=== PATIENT | male | born 1960 | race Caucasian/White ===

== ENCOUNTER 2016-12-06 13:19 | Observation (INO) | payer BC ==
[~2016-12-06] VITALS: Ht 175.3 cm; Wt 82.1 kg
[2016-12-06] VITALS (7 sets, daily range): BP systolic 105–146; BP diastolic 64–79; PULSE 102–115; RESP 16–20; TEMP 99.4–99.6; O2SAT 93–96
[~2016-12-06 13:19] MED LIST: ASCO500C PO; FERR310S PO; GLIM1 PO; LANSO30 PO; LIVA4TAB PO; LOSA50TA PO; MAGN250T9 PO; METF500 PO; MULTTAB; TRAD5TAB PO; VENTAER INH; VITA5000 PO; ZITH1POW PO
[2016-12-06] MEDS ORDERED: GLIM1TAB PO (14:30)
[2016-12-06] MEDS ORDERED: LIVA2TAB PO (14:30)
[2016-12-06] MEDS ORDERED: VITD400 PO (14:30)
[2016-12-06] MEDS ORDERED: METF500T PO (14:30)
[2016-12-06] MEDS ORDERED: LOSA50TA PO (14:30)
[2016-12-06] MEDS ORDERED: OMEP20TA PO (14:30)
[2016-12-06] MEDS ORDERED: PIOG30TA4 PO (14:30)
[2016-12-06] MEDS ORDERED: ALBI1INJ SQ (14:30)
[2016-12-06] MEDS ORDERED: SODIUM CHLOR 0.9% 1000 ML INJ 1,000 ML IV SCH (14:53)
[2016-12-06] MEDS ORDERED: ONDANSETRON HCL 4 MG/2 ML VIAL IVP ONE (15:00)
[2016-12-06] MEDS ORDERED: methylPREDNISolone SOD SUCC 125 MG/2 ML VIAL IVP ONE (15:00)
--- NOTE | 2016-12-06 15:02 | PD ---
HPI Chief Complaint: Cold / Flu Symptoms Time Seen by Provider: 14:56 Travel History International Travel<30 days: No Contact w/Intl Traveler<30days: No Traveled to known affect area: No History of Present Illness HPI Patient is a 56-year-old male with a history of NIDDM and childhood asthma presenting with cough and fever for 3 days. It is progressively worsening. Endorses sputum production that is clear and white. Endorses wheezing and tightness in the chest but denies chest pain. States he feels like he has difficulty taking a full breath. Does have some upper back pain bilaterally. No pleuritic pain. Reports dyspnea, nasal congestion and left ear pain. Some myalgias. He did not receive influenza vaccine. MAXIMUM TEMPERATURE 103.0 Fahrenheit, it has responded to antipyretics which she took approximately 3 hours prior to arrival. He states he's had some nausea as well and reduced oral intake. No vomiting or diarrhea. He's had some lower abdominal pain with coughing that does not radiate. He denies any urinary symptoms. He denies constipation. He states his sugars have not been well-controlled with his fasting in the low 200s. PFSH Past Medical History Anemia: Yes Cancer: No High Cholesterol: Yes Diabetes: Yes (TYPE 2) Patient Takes Glucophage: Yes Endocrine: Yes Hypertension: Yes Inguinal Hernia: Yes Psychiatric: No Respiratory: Yes (CHILDHOOD ASTHMA) Tetanus Vaccination: < 5 Years Influenza Vaccination: No Past Surgical History Neurologic Surgery: Yes (LAMINECTOMY) Tonsillectomy: Yes Other Surgery: Yes Social History Alcohol Use: No Tobacco Use: No Substance Use: No Allergies-Medications (Allergen,Severity, Reaction): Coded Allergies: No Known Allergies (Unverified , 12/06/16) Reported Meds & Prescriptions Reported Meds & Active Scripts Active Reported Pioglitazone (Pioglitazone HCl) 30 Mg Tab 30 Mg PO DAILY Omeprazole 20 Mg Tab 20 Mg PO DAILY Vitamin D3 (Cholecalciferol) 400 Unit Tab 400 Units PO DAILY Metformin (Metformin HCl) 500 Mg Tab 500 Mg PO BIDPC With meals Livalo (Pitavastatin) 2 Mg Tab 2 Mg PO DAILY Tanzeum 4-Pack Inj (Albiglutide) 30 Mg Pfpen 30 Mg SQ Q7D Losartan (Losartan Potassium) 50 Mg Tab 50 Mg PO DAILY Glimepiride 1 Mg Tab 1 Mg PO BID Take with breakfast or first main meal Review of Systems Except as stated in HPI: all other systems reviewed are Neg Physical Exam Narrative GENERAL: Well-developed and well-nourished adult male in no acute distress. Mildly diaphoretic in the face. SKIN: Warm and dry. Decreased turgor without tenting. HEAD: Normocephalic and atraumatic. EYES: PERRL bilaterally, 5mm. EOMI bilaterally. No injection or icterus present. No proptosis. Lids without edema or erythema. ENT: Bilateral ear canals are non-edematous/non-erythematous without otorrhea. Bilateral TMs have intact landmarks and without distortion, perforation, air- fluid level or erythema. Nasal mucosa erythematous and edematous with scant yellow discharge, septum intact and midline. Buccal mucosa pink and slightly dry. Oropharynx free of erythema, tonsillar hypertrophy, masses, swelling, asymmetry and exudates. Uvula midline and airway patent. NECK: Supple, no meningeal signs. Trachea midline, no JVD. No cervical or facial lymphadenopathy. CARDIOVASCULAR: Mild tachycardic (102) with regular rhythm without murmurs, rubs , clicks or gallops. Radial and posterior tibial pulses 2+ bilaterally. No pedal edema. Negative bilateral Homans sign. RESPIRATORY: Reduced breath sounds in the upper lung starr bilaterally without wheezing auscultated. Possible crackles in the left upper to mid lung starr posteriorly. No rhonchi. No distress or use of accessory muscles. Speaks in full sentences. No stridor, tripoding or drooling. GASTROINTESTINAL: Mild tenderness to palpation in the right periumbilical region without right upper quadrant or right lower quadrant tenderness. No rebound or guarding. No discoloration or distention. Normal bowel sounds all 4 quadrants. No masses or organomegaly present. MUSCULOSKELETAL: No gait disturbances. Patient freely moving all four extremities spontaneously. Extremities without clubbing, cyanosis, or edema. No obvious deformities. NEUROLOGIC: CN II-XII grossly intact. Awake and alert. Motor grossly within normal limits. Normal speech. PSYCHIATRIC: Appropriate mood and affect; insight and judgment normal. Data Data Last Documented VS Orders Electrocardiogram (12/06/16 14:53) Complete Blood Count With Diff (12/06/16 14:53) Comprehensive Metabolic Panel (12/06/16 14:53) Influenzae A/B Antigen (12/06/16 14:53) Chest, Pa & Lat (12/06/16 14:53) Ecg Monitoring (12/06/16 14:53) Iv Access Insert/Monitor (12/06/16 14:53) Oximetry (12/06/16 14:53) Ckmb (Isoenzyme) Profile (12/06/16 14:53) Prothrombin Time / Inr (Pt) (12/06/16 14:53) Act Partial Throm Time (Ptt) (12/06/16 14:53) Troponin I (12/06/16 14:53) Lipase (12/06/16 14:53) Lactic Acid (12/06/16 14:53) Urinalysis - C+S If Indicated (12/06/16 14:53) Ondansetron Inj (Zofran Inj) (12/06/16 15:00) Sodium Chlor 0.9% 1000 Ml Inj (Ns 1000 M (12/06/16 14:53) Blood Culture (12/06/16 14:53) Methylprednisolone So Succ Inj (Solumedr (12/06/16 15:00) Albuterol-Ipratropium Neb (Duoneb Neb) (12/06/16 15:00) Albuterol-Ipratropium Neb (Duoneb Neb) (12/06/16 16:15) Ct Pulmonary Angiogram (12/06/16 16:47) Admit Order (Ed Use Only) (12/06/16 17:17) Labs MDM Medical Decision Making Medical Screen Exam Complete: Yes Emergency Medical Condition: Yes Interpretation(s) EKG: Sinus tachycardia present, rate of 114. Normal axis and normal intervals. No ST T changes. Differential Diagnosis Pneumonia versus influenza versus viral syndrome versus sepsis versus dehydration versus electrolyte disturbance versus pancreatitis versus ACS less likely versus PE Narrative Course Patient is a 56-year-old NIDDM and childhood asthma presenting with upper respiratory/anti-Aguirre for 3 days with fever. He is currently afebrile however temperature is 99.6 and he reports MAXIMUM TEMPERATURE 103F, took antipyretics prior to arrival. He has decreased skin turgor and dry mucous membranes is mildly tachycardic. He has slightly decreased breath sounds suggesting bronchospasm and some possible crackles. He reports chest tightness and difficulty taking a deep breath but no baron chest pain. Reports some nausea and reduced oral intake with some very mild abdominal discomfort which he relates to coughing and straining the muscles. Mild tenderness in the right periumbilical region without rebounding or guarding. Patient was given 1 L normal saline bolus and ordered Zofran and ordered chest x-ray and rapid flu test as well as EKG and labs including lactic acid and blood cultures. Patient was also given SoluMedrol and DuoNeb. Patient does not feel any improvement after initial nebulizer treatment. He continued not have any wheezing on exam however. Oxygen level did decrease to 93% on room air. Patient was given additional neb was a treatment and did have some minor improvement in saturations did improve to 95%. EKG shows sinus tachycardia and some inferior lead Q waves which are not present on 2 doesn't 15 EKG. Chest x-ray shows no acute cardio pulmonary process. CBC shows no leukocytosis. Lactate 1.8. Flu A positive. Metabolic panel shows sodium 135, BUN 19, parent and 1.5, up from baseline of 1.00. Glucose 222. Calcium 8.2. CK 69, troponin less than 0.02. albumin 3.2, lipase 520. I spoke with Dr. Orellana who also evaluated this patient and agrees that influenza is likely the cause of his respiratory symptoms however as he has no wheezing cannot definitely rule out ACS or PE. Recommend CTA pulmonary angiogram which was ordered. This patient has mild dehydration and his other symptoms recommended observation. Gave report to Eliazar JARRETT who accepted the admission. Diagnosis Primary Impression: Chest tightness Additional Impressions: Dyspnea Qualified Code: R06.00 - Dyspnea, unspecified type Influenza A Dehydration Admitting Information Admitting Physician Requests: Observation Scripts Oseltamivir (Tamiflu)75 Mg Cap75 Mg PO BID #6 CAP Ref 0 Prov:Renetta Johnson MD 12/08/16 Condition: Stable Eliazar Kilpatrick III Dec 06, 2016 15:02 CBC Comment DIFF FINAL Differential Comment Prothrombin Time 11.4 SEC Prothromb Time International 1.0 RATIO Ratio Activated Partial 29.3 SEC Thromboplast Time Sodium Level 135 MEQ/L Potassium Level 4.3 MEQ/L Chloride Level 102 MEQ/L Carbon Dioxide Level 22.8 MEQ/L Anion Gap 10 MEQ/L Blood Urea Nitrogen 19 MG/DL Creatinine 1.50 MG/DL Estimat Glomerular Filtration 48 ML/MIN Rate Random Glucose 222 MG/DL Lactic Acid Level 1.8 mmol/L Calcium Level 8.2 MG/DL Total Bilirubin 0.3 MG/DL Aspartate Amino Transf 33 U/L (AST/SGOT) Alanine Aminotransferase 55 U/L (ALT/SGPT) Alkaline Phosphatase 62 U/L Total Creatine Kinase 69 U/L Troponin I LESS THAN 0.02 NG/ML Total Protein 7.2 GM/DL Albumin 3.2 GM/DL Lipase 520 U/L [facility] Medical Decision Making Medical Screen Exam Complete: Yes Emergency Medical Condition: Yes Interpretation(s) EKG: Sinus tachycardia present, rate of 114. Normal axis and normal intervals. No ST T changes. Differential Diagnosis Pneumonia versus influenza versus viral syndrome versus sepsis versus dehydration versus electrolyte disturbance versus pancreatitis versus ACS less likely versus PE Narrative Course Patient is a 56-year-old NIDDM and childhood asthma presenting with upper respiratory/anti-Aguirre for 3 days with fever. He is currently afebrile however temperature is 99.6 and he reports MAXIMUM TEMPERATURE 103F, took antipyretics prior to arrival. He has decreased skin turgor and dry mucous membranes is mildly tachycardic. He has slightly decreased breath sounds suggesting bronchospasm and some possible crackles. He reports chest tightness and difficulty taking a deep breath but no baron chest pain. Reports some nausea and reduced oral intake with some very mild abdominal discomfort which he relates to coughing and straining the muscles. Mild tenderness in the right periumbilical region without rebounding or guarding. Patient was given 1 L normal saline bolus and ordered Zofran and ordered chest x-ray and rapid flu test as well as EKG and labs including lactic acid and blood cultures. Patient was also given SoluMedrol and DuoNeb. Patient does not feel any improvement after initial nebulizer treatment. He continued not have any wheezing on exam however. Oxygen level did decrease to 93% on room air. Patient was given additional neb was a treatment and did have some minor improvement in saturations did improve to 95%. EKG shows sinus tachycardia and some inferior lead Q waves which are not present on 2 doesn't 15 EKG. Chest x-ray shows no acute cardio pulmonary process. CBC shows no leukocytosis. Lactate 1.8. Flu A positive. Metabolic panel shows sodium 135, BUN 19, parent and 1.5, up from baseline of 1.00. Glucose 222. Calcium 8.2. CK 69, troponin less than 0.02. albumin 3.2, lipase 520. I spoke with Dr. Orellana who also evaluated this patient and agrees that influenza is likely the cause of his respiratory symptoms however as he has no wheezing cannot definitely rule out ACS or PE. Recommend CTA pulmonary angiogram which was ordered. This patient has mild dehydration and his other symptoms recommended observation. Gave report to Eliazar JARRETT who accepted the admission. Diagnosis Primary Impression: Chest tightness Additional Impressions: Dyspnea Qualified Code: R06.00 - Dyspnea, unspecified type Influenza A Dehydration Admitting Information Admitting Physician Requests: Observation Condition: Stable Eliazar Kilpatrick III Dec 06, 2016 15:02
[2016-12-06] MEDS: RESP: ALBUTEROL 2.5 MG/IPRATROPIUM 0.5 MG NEB (SCH) INH ×4 (15:03→16:19)
[2016-12-06 15:26] LABS: BASOPHIL # 0.1 TH/MM3 (0-0.2); EOSINOPHIL # 0.1 TH/MM3 (0-0.4); EOSINOPHIL % 1.7 % (0.0-4.0); HEMATOCRIT 40.1 % (39.0-51.0); LYMPH % 15.2 % (9.0-44.0); LYMPHOCYTE # 1.3 TH/MM3 (1.0-4.8); MEAN CELL VOLUME 82.9 FL (80.0-100.0); MEAN CORPUSCULAR HEMOGLOBIN 27.5 PG (27.0-34.0); MEAN CORPUSCULAR HGB CONC 33.2 % (32.0-36.0); MONO % 14.8 % (0.0-8.0); NEUT % 67.3 % (16.0-70.0); PLATELET COUNT 143 TH/MM3 (150-450); RED BLOOD COUNT 4.84 MIL/MM3 (4.50-5.90); RED CELL DISTRIBUTION WIDTH 12.4 % (11.6-17.2); WHITE BLOOD COUNT 8.8 TH/MM3 (4.0-11.0)
[2016-12-06 15:33] LABS: CHLORIDE 102 MEQ/L (98-107); POTASSIUM 4.3 MEQ/L (3.5-5.1); SODIUM (NA) 135 MEQ/L (136-145)
[2016-12-06 15:34] LABS: HEMO FLAGS DIFF FINAL
[2016-12-06 15:37] LABS: ANION GAP 10 MEQ/L (5-15); BICARBONATE 22.8 MEQ/L (21.0-32.0); BLOOD UREA NITROGEN 19 MG/DL (7-18)
[2016-12-06 15:38] LABS: APTT (PATIENT) 29.3 SEC (24.3-30.1); PROTHROMBIN TIME - PATIENT 11.4 SEC (9.8-11.6)
[2016-12-06 15:40] LABS: ALT (GPT) 55 U/L (12-78); AST (GOT) 33 U/L (15-37); GLOMERULAR FILTRATION RATE 48 ML/MIN (>89)
[2016-12-06 15:41] LABS: TOTAL BILIRUBIN ADULT 0.3 MG/DL (0.2-1.0)
[2016-12-06 15:43] LABS: ALKALINE PHOSPHATASE 62 U/L (45-117)
[2016-12-06 15:47] LABS: CREATINE KINASE 69 U/L (39-308)
--- NOTE | 2016-12-06 16:12 | RADHPO ---
EXAM DATE/TIME: 12/06/2016 15:01 [facility] COMPARISON: CHEST PA & LAT, January 04, 2015, 18:25. INDICATIONS : Patient states cough and fever. MEDICAL HISTORY : Diabetes mellitus type II. SURGICAL HISTORY : None. ENCOUNTER: Initial ACUITY: 2 days PAIN SCORE: 3/10 LOCATION: Left chest FINDINGS: The lungs are clear. Cardiomediastinal silhouette within normal limits. No evidence of pleural effusi on or pneumothorax. CONCLUSION: No acute cardiopulmonary disease identified. Washington Weiner MD on December 06, 2016 at 16:09 Board Certified Radiologist. This report was verified electronically.
[2016-12-06] MEDS ORDERED: MAGNESIUM HYDROXIDE SUSP 30 ML CUP PO PRN (17:30)
[2016-12-06] MEDS ORDERED: TEMAZEPAM 15 MG CAP PO PRN (17:30)
[2016-12-06] MEDS ORDERED: BISACODYL 10 MG SUPP PR PRN (17:30)
[2016-12-06] MEDS ORDERED: ACETAMINOPHEN 325 MG TAB PO PRN (17:30)
[2016-12-06] MEDS ORDERED: NALOXONE HCL 0.4 MG/ML AMP IV PRN (17:30)
[2016-12-06] MEDS ORDERED: SODIUM CHLORIDE 0.9% FLUSH 5 ML FLUSH FLUSH PRN (17:30)
[2016-12-06] MEDS ORDERED: GLUCAGON 1 MG/ML VIAL OTHER PRN (17:30)
[2016-12-06] MEDS ORDERED: DEXTROSE 50% IN WATER 50 ML VIAL(D50) IV PUSH PRN (17:30)
[2016-12-06] MEDS ORDERED: ONDANSETRON HCL 4 MG/2 ML VIAL IVP PRN (17:30)
[2016-12-06] MEDS ORDERED: IOHEXOL 350 MG/ML 10 ML VIAL (for RAD DIAG) IV ONE (17:58)
--- NOTE | 2016-12-06 18:03 | RADHPO ---
EXAM DATE/TIME: 12/06/2016 17:38 [facility] COMPARISON: No previous studies available for comparison. INDICATIONS : Evaluate for pulmonary embolism. IV CONTRAST: 75 cc Omnipaque 350 (iohexol) IV RADIATION DOSE: 16.70 CTDIvol (mGy) MEDICAL HISTORY : Hypertension. Diabetes mellitus type 2. SURGICAL HISTORY : Tonsillectomy. ENCOUNTER: Initial ACUITY: 3 days PAIN SCALE: 4/10 LOCATION: chest TECHNIQUE: Volumetric scanning of the chest was performed using a pulmonary embolism protocol MIP images were re constructed. Using automated exposure control and adjustment of the mA and/or kV according to patien t size, radiation dose was kept as low as reasonably achievable to obtain optimal diagnostic quality images. FINDINGS: PULMONARY ARTERIES: No filling defects are seen in the pulmonary arteries through the segmental level. LUNGS: Trace bibasilar atelectasis. PLEURAE: There is no pleural thickening or pleural effusion. MEDIASTINUM: There is good visualization of the great vessels of the middle mediastinum. No evidence of mediastin al or hilar adenopathy/mass. Heart size normal. Patchy coronary artery calcification noted, most cons picuous of the left anterior descending. MUSCULOSKELETAL: Within normal limits for patient age. MISCELLANEOUS: The visualized upper abdominal organs demonstrate no acute abnormality. CONCLUSION: 1. No pulmonary embolus. 2. Trace atelectasis of both lung bases. 3. Patchy coronary artery calcification. Eliazar Sharma MD on December 06, 2016 at 18:01 Board Certified Radiologist. This report was verified electronically.
[2016-12-06 18:20] LABS: BLOOD, URINE NEG (NEG); GLUCOSE,URINE 500 mg/dL (NEG); KETONE, URINE TRACE mg/dL (NEG); NITRITE,URINE NEG (NEG)
[2016-12-06 18:32] LABS: COMMENT (UR) CULT NOT INDICATED; CULTURE IF INDICATED CULT NOT INDICATED; RBC, URINE 0-2 /hpf (0-3); SQUAMOUS EPITHELIAL CELL URINE 0-5 /hpf (0-5); URINE COLOR YELLOW (YELLW/STRAW); WBC, URINE 0-2 /hpf (0-5)
[2016-12-06] MEDS: OSELTAMIVIR PHOSPHATE 75 MG CAP PO SCH (20:07)
[2016-12-06] MEDS: SODIUM CHLOR 0.9% 1000 ML INJ 1,000 ML IV SCH (20:07)
[2016-12-06] MEDS: SODIUM CHLORIDE 0.9% FLUSH 5 ML FLUSH FLUSH SCH (20:08)
[2016-12-06] MEDS: INSULIN ASPART SUPPLEMENTAL SCALE SQ SCH (20:18)
[2016-12-06 22:54] LABS: CREATINE KINASE 67 U/L (39-308)
[2016-12-07] VITALS (8 sets, daily range): BP systolic 116–157; BP diastolic 73–90; PULSE 65–95; RESP 18–20; TEMP 96.5–98; O2SAT 94–98
[2016-12-07] MEDS: SODIUM CHLOR 0.9% 1000 ML INJ 1,000 ML IV SCH ×4 (00:03→17:54)
[2016-12-07] MEDS ORDERED: PHENOL 1.4% SOLN 180 ML BTL OROPHARYNG PRN (01:45)
[2016-12-07 04:40] LABS: AUTOMATED NEUTROPHIL # 7.6 TH/MM3 (1.8-7.7); BASOPHIL % 0.3 % (0.0-2.0); EOSINOPHIL % 0.1 % (0.0-4.0); HEMATOCRIT 39.8 % (39.0-51.0); HEMO FLAGS DIFF FINAL; LYMPH % 8.3 % (9.0-44.0); LYMPHOCYTE # 0.7 TH/MM3 (1.0-4.8); MEAN CELL VOLUME 83.4 FL (80.0-100.0); MEAN CORPUSCULAR HEMOGLOBIN 27.7 PG (27.0-34.0); MEAN CORPUSCULAR HGB CONC 33.3 % (32.0-36.0); MONO % 5.3 % (0.0-8.0); PLATELET COUNT 160 TH/MM3 (150-450); RED BLOOD COUNT 4.78 MIL/MM3 (4.50-5.90); RED CELL DISTRIBUTION WIDTH 12.3 % (11.6-17.2); WHITE BLOOD COUNT 8.8 TH/MM3 (4.0-11.0)
[2016-12-07 04:48] LABS: POTASSIUM 4.3 MEQ/L (3.5-5.1)
[2016-12-07 04:51] LABS: BICARBONATE 22.7 MEQ/L (21.0-32.0)
[2016-12-07] MEDS: NITROGLYCERIN 0.3 MG SL 100 TABS/BTL SL PRN ×3 (05:01→05:25)
[2016-12-07 05:02] LABS: CREATINE KINASE 91 U/L (39-308)
[2016-12-07] MEDS: INSULIN ASPART SUPPLEMENTAL SCALE SQ SCH ×4 (07:00→21:00)
[2016-12-07] MEDS: SODIUM CHLORIDE 0.9% FLUSH 5 ML FLUSH FLUSH SCH ×2 (08:37→21:00)
[2016-12-07] MEDS: OSELTAMIVIR PHOSPHATE 75 MG CAP PO SCH ×2 (08:38→21:00)
[2016-12-07] MEDS ORDERED: metFORMIN HCL 500 MG TAB PO SCH (09:00)
[2016-12-07] MEDS: PANTOPRAZOLE SOD 20 MG DELAYED RELEASE TAB PO SCH (10:38)
[2016-12-07] MEDS: PIOGLITAZONE HCL 30 MG TAB PO SCH (10:38)
[2016-12-07] MEDS: GLIMEPIRIDE 1 MG TAB PO SCH ×2 (10:38→17:54)
[2016-12-07] MEDS: CHOLECALCIFEROL (VIT D3) 400 UNIT TAB PO SCH (10:39)
[2016-12-07] MEDS: PRAVASTATIN SOD 40 MG TAB PO SCH (10:39)
[2016-12-07] MEDS: LOSARTAN 50 MG TAB PO SCH (10:39)
--- NOTE | 2016-12-07 10:56 | HHI.HP ---
[facility] Service [facility] ([place], [place])ists Primary Care Physician Dipak Pond MD Admission Diagnosis DYSPNEA, CHEST TIGHTNESS, FLU, DEHYDRATION Diagnoses: Travel History International Travel<30 Days: No Contact w/Intl Traveler <30 Da: No Traveled to Known Affected Are: No History of Present Illness This is a 56 year-old female with past medical history of type 2 diabetes who presented to the ER last night complaining of a three-day history of cough productive of clear sputum, fevers, chills, myalgias and fatigue. The patient felt like the symptoms were worsening. Over the past several days he also had nausea but no vomiting. Because of the nausea he had not taken any of his medications for diabetes. He was starting to feel dehydrated and short of breath and thus he presented to the ER. In the ER influenza testing was positive. The patient received duo nebs and was started on Tamiflu and was placed in the hospital for observation. Today the patient states that he feels "100% better." He states that the duo nebs really helped with the shortness of breath. 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 He states that nitroglycerin did relieve the chest pain. The patient denies that he has had any other episodes of chest pain prior to being sick with influenza. He does not get short of breath or have chest pressure when he climbs up a flight of stairs. The patient states that he had a stress test 10-15 years ago but has not had one recently. The patient is also followed by an horticulture worker Dr. Asher and he is on Tanzeum subcutaneous injection weekly, glimepiride as well as metformin and by mouth glitazone. The patient states that he was tried on insulin in the past but it failed to control his diabetes. For this he believes he is insulin resistant. The patient's Accu-Cheks are running in the 300s this morning but he is refusing to take the short acting insulin at this time because he does not feel it will be effective. He denies ever having any bad reaction or side effect to the insulin. Review of Systems Constitutional: COMPLAINS OF: Fever, Chills Ears, nose, mouth, throat: COMPLAINS OF: Nasal discharge, Throat pain, Running Nose Respiratory: COMPLAINS OF: Cough, Sputum production, Shortness of breath Cardiovascular: COMPLAINS OF: Chest pain, Dyspnea on Exertion, DENIES: Palpitations, Syncope Gastrointestinal: COMPLAINS OF: Nausea, DENIES: Vomiting Genitourinary: DENIES: Urgency, Dysuria Musculoskeletal: DENIES: Back pain, Neck pain Integumentary: DENIES: Rash Hematologic/lymphatic: DENIES: Lymphadenopathy Neurologic: DENIES: Abnormal gait, Headache Psychiatric: DENIES: Anxiety, Confusion Past Family Social History Past Medical History Type 2 diabetes The patient is on losartan and cholesterol medication which he states he takes prophylactically for the diabetes Past Surgical History Right finger traumatic amputations Laminectomy Reported Medications Allergies Coded Allergies Type Severity Reaction Last Updated Verified No Known Allergies 12/06/16 No Active Scripts Medications Dose Route/Sig Days Date Category Dose Instructions Pioglitazone (Pioglitazone HCl) 30 Mg Tab 30 Mg PO DAILY 12/06/16 Reported Omeprazole 20 Mg Tab 20 Mg PO DAILY 12/06/16 Reported Vitamin D3 (Cholecalciferol) 400 Unit Tab 400 Units PO DAILY 12/06/16 Reported Metformin (Metformin HCl) 500 Mg Tab 500 Mg PO BIDPC 12/06/16 Reported With meals Livalo (Pitavastatin) 2 Mg Tab 2 Mg PO DAILY 12/06/16 Reported Tanzeum 4-Pack Inj (Albiglutide) 30 Mg Pfpen 30 Mg SQ Q7D 12/06/16 Reported Losartan (Losartan Potassium) 50 Mg Tab 50 Mg PO DAILY 12/06/16 Reported Glimepiride 1 Mg Tab 1 Mg PO BID 12/06/16 Reported Take with breakfast or first main meal Allergies: Coded Allergies: No Known Allergies (Unverified , 12/06/16) Family History Reviewed and noncontributory Social History No history of tobacco use Physical Exam Vital Signs Vital Signs Date Time Temp Pulse Resp B/P Pulse Ox O2 Delivery O2 Flow Rate FiO2 12/07/16 10:03 96 21 12/07/16 08:00 97.2 66 20 135/83 95 12/07/16 04:00 97.7 74 18 157/90 94 12/07/16 00:00 98.0 95 18 135/88 94 12/06/16 22:31 94 21 12/06/16 20:00 99.4 115 18 141/74 94 12/06/16 18:13 108 20 146/76 93 Room Air 12/06/16 16:21 93 12/06/16 16:20 93 21 12/06/16 16:18 102 20 125/64 93 Room Air 12/06/16 13:31 99.6 108 16 105/79 96 Physical Exam GENERAL: Well-nourished, well-developed pleasant and intelligent male patient in no apparent distress. SKIN: Warm and dry. HEAD: Normocephalic. EYES: No scleral icterus. No injection or drainage. NECK: Supple, trachea midline. No JVD or lymphadenopathy. CARDIOVASCULAR: Regular rate and rhythm without murmurs, gallops, or rubs. RESPIRATORY: Breath sounds equal and clear to auscultation bilaterally. No accessory muscle use on room air. GASTROINTESTINAL: Abdomen soft, non-tender, nondistended. EXTREMITIES: No cyanosis, or edema. NEUROLOGICAL: Awake, alert, and oriented x 3. Non-focal. Laboratory Laboratory Tests Test 12/06/16 12/06/16 12/06/16 12/07/16 15:10 17:50 22:09 04:20 White Blood Count 8.8 8.8 Red Blood Count 4.84 4.78 Hemoglobin 13.3 13.3 Hematocrit 40.1 39.8 Mean Corpuscular Volume 82.9 83.4 Mean Corpuscular Hemoglobin 27.5 27.7 Mean Corpuscular Hemoglobin 33.2 33.3 Concent Red Cell Distribution Width 12.4 12.3 Platelet Count 143 160 Mean Platelet Volume 10.7 10.5 Neutrophils (%) (Auto) 67.3 86.0 Lymphocytes (%) (Auto) 15.2 8.3 Monocytes (%) (Auto) 14.8 5.3 Eosinophils (%) (Auto) 1.7 0.1 Basophils (%) (Auto) 1.0 0.3 Neutrophils # (Auto) 6.0 7.6 Lymphocytes # (Auto) 1.3 0.7 Monocytes # (Auto) 1.3 0.5 Eosinophils # (Auto) 0.1 0.0 Basophils # (Auto) 0.1 0.0 CBC Comment DIFF FINAL DIFF FINAL Differential Comment Prothrombin Time 11.4 Prothromb Time International 1.0 Ratio Activated Partial 29.3 Thromboplast Time Sodium Level 135 136 Potassium Level 4.3 4.3 Chloride Level 102 100 Carbon Dioxide Level 22.8 22.7 Anion Gap 10 13 Blood Urea Nitrogen 19 22 Creatinine 1.50 1.40 Estimat Glomerular Filtration 48 52 Rate Random Glucose 222 339 Lactic Acid Level 1.8 Calcium Level 8.2 8.3 Total Bilirubin 0.3 Aspartate Amino Transf 33 (AST/SGOT) Alanine Aminotransferase 55 (ALT/SGPT) Alkaline Phosphatase 62 Total Creatine Kinase 69 67 91 Troponin I LESS THAN 0.02 LESS THAN 0.02 LESS THAN 0.02 Total Protein 7.2 Albumin 3.2 Lipase 520 209 Urine Color YELLOW Urine Turbidity CLEAR Urine pH 6.0 Urine Specific [place] 1.015 Urine Protein TRACE Urine Glucose (UA) 500 Urine Ketones TRACE Urine Occult Blood NEG Urine Nitrite NEG Urine Bilirubin NEG Urine Leukocyte Esterase NEG Urine RBC 0-2 Urine WBC 0-2 Urine Squamous Epithelial 0-5 Cells Urine Bacteria NONE Microscopic Urinalysis Comment CULT NOT INDICATED Date/Time Procedure Status Source Growth 12/06/16 15:20 Influenza Types A,B Antigen (CHRISTINA) - Final Complete Nasal Washing Positive For Flu A Antigen 12/06/16 15:15 Aerobic Blood Culture Received Blood Peripheral Pending 12/06/16 15:15 Anaerobic Blood Culture Received Blood Peripheral Pending Result Diagram: 12/07/16 0420 12/07/[address] Angiography 12/06/16 1647 Signed Impressions: Service Date/Time: December 17:38 - CONCLUSION: 1. No pulmonary embolus. 2. Trace atelectasis of both lung bases. 3. Patchy coronary artery calcification. Eliazar Sharma MD Chest X-Ray 12/06/16 1453 Signed Impressions: Service Date/Time: December 15:01 - CONCLUSION: No acute cardiopulmonary disease identified. Washington Weiner MD Assessment and Plan Assessment and Plan -Influenza. Symptoms improved. Continue Tamiflu and supportive care. Duo nebs. -Dehydration with mild and probable acute kidney injury. Creatinine 1.5 which is increased from his baseline from 2 years ago however BUN is not significantly elevated. We'll continue with IV fluid hydration but decrease rate as his by mouth intake is now improved. Will repeat BMP in the morning. I will request his recent labs from his horticulture worker office. -Transient chest pain last night in the setting of influenza. Serial EKGs and troponins are negative. Given his type 2 diabetes, age we will proceed with stress test. Unfortunately he had tea this morning so this will be need to be scheduled for tomorrow morning. Continue aspirin, nitroglycerin when necessary. -Type 2 diabetes. Uncontrolled currently as the patient had not taken his medications for 2 days as an outpatient. He is apprehensive about using sliding scale insulin as he states the insulin does not work for him. We will resume his home medications with the exception of metformin which needs to be held for 48 hours status post CTA. Continue ADA diet. -DVT prophylaxis with SCDs. Renetta Johnson MD Dec 07, 2016 10:56
[2016-12-07] MEDS ORDERED: ALBUTEROL SULFATE 90 MCG/ACT HFA 8 GM INHALER INH PRN (11:00)
[2016-12-07] MEDS ORDERED: ALBIGLUTIDE SQ SCH ×2 (12:00→15:00)
--- NOTE | 2016-12-07 13:35 | EKG ---
Date Performed: 12/06/2016 Time Performed: 15:16:52 PTAGE: 56 years EKG: Sinus tachycardia Inferior T wave changes are nonspecific Low QRS voltages in precordial le ads Borderline ECG NO PREVIOUS TRACING DOCTOR: Stephanie Del Rio Interpretating Date/Time 12/07/2016 13:33:28
--- NOTE | 2016-12-07 13:46 | EKG ---
Date Performed: 12/07/2016 Time Performed: 03:02:04 PTAGE: 56 years EKG: Sinus rhythm Low QRS voltages in precordial leads Borderline ECG PREVIOUS TRACING : 12/06/2016 21.08 Since previous tracing, no significant change noted DOCTOR: Stephanie Del Rio Interpretating Date/Time 12/07/2016 13:38:09
--- NOTE | 2016-12-07 13:46 | EKG ---
Date Performed: 12/06/2016 Time Performed: 21:08:20 PTAGE: 56 years EKG: Sinus rhythm Low QRS voltages in precordial leads Borderline ECG PREVIOUS TRACING : 12/06/2016 15.16 Since previous tracing, no significant change noted DOCTOR: Stephanie Del Rio Interpretating Date/Time 12/07/2016 13:38:01
[2016-12-07] MEDS ORDERED: RESP: ALBUTEROL 2.5 MG/IPRATROPIUM 0.5 MG NEB (SCH) NEB (14:00)
[2016-12-07] MEDS ORDERED: RESP: ALBUTEROL 2.5 MG/IPRATROPIUM 0.5 MG NEB (PRN) NEB (16:00)
[2016-12-08] VITALS: BP 116/82; PULSE 72; RESP 18; TEMP 96.7; O2SAT 95
[2016-12-08 04:07] VITALS: BP 116/86; PULSE 66; RESP 20; TEMP 97.7; O2SAT 97
[2016-12-08] MEDS: INSULIN ASPART SUPPLEMENTAL SCALE SQ SCH ×2 (06:08→11:00)
[2016-12-08] MEDS: SODIUM CHLOR 0.9% 1000 ML INJ 1,000 ML IV SCH (06:09)
[2016-12-08 07:20] VITALS: O2SAT 93
[2016-12-08 08:00] VITALS: BP 126/80; PULSE 65; PULSE 78; RESP 18; TEMP 97; O2SAT 97
[2016-12-08] MEDS: SODIUM CHLORIDE 0.9% FLUSH 5 ML FLUSH FLUSH SCH (09:00)
[2016-12-08] MEDS ORDERED: REGADENOSON INJ 0.4 MG/5 ML SYR IV ONE (09:32)
--- NOTE | 2016-12-08 10:45 | RADHPO ---
EXAM DATE/TIME: 12/08/2016 09:39 [place] COMPARISON: No previous studies available for comparison. INDICATIONS : Substernal chest pain with dyspnea. Angina. DOSE: 25.4 mCi Tc99m Myoview at stress. 8.5 mCi Tc99m Myoview at rest. 0.4 mg Lexiscan STRESS SYMPTOMS: Dyspnea. EJECTION FRACTION: 69% MEDICAL HISTORY : Diabetes mellitus type 2. SURGICAL HISTORY : Laminectomy and finger amputation. ENCOUNTER: Initial ACUITY: 1 day PAIN SCALE: 5/10 LOCATION: Substernal chest TECHNIQUE: The patient underwent pharmacologic stress with infusion of prescribed dose. Continuous ECG tracing was monitored during stress. Gated SPECT imaging was performed after stress and conventional SPECT i maging was performed at rest. The examination was performed on a SPECT/CT scanner, both attenuation and non-corrected datasets were reviewed. FINDINGS: DISTRIBUTION: The maximum perfused segment at stress is in the inferoseptal wall. PERFUSION STUDY: The pattern of perfusion at stress is within normal limits. GATED STUDY: There is intact wall motion and thickening without hypokinetic or dyskinetic segments. CONCLUSION: No reversible perfusion defects to suggest ischemia. Normal ejection fraction. RISK CATEGORY: Low (<1% Annual Mortality Rate) Josiah Preston MD on December 08, 2016 at 10:42 Board Certified Radiologist. This report was verified electronically.
[2016-12-08 10:48] LABS: POTASSIUM 3.9 MEQ/L (3.5-5.1)
[2016-12-08 10:51] LABS: BICARBONATE 27.9 MEQ/L (21.0-32.0)
[2016-12-08] MEDS: CHOLECALCIFEROL (VIT D3) 400 UNIT TAB PO SCH (11:43)
[2016-12-08] MEDS: PANTOPRAZOLE SOD 20 MG DELAYED RELEASE TAB PO SCH (11:43)
[2016-12-08] MEDS: LOSARTAN 50 MG TAB PO SCH (11:43)
[2016-12-08] MEDS: PRAVASTATIN SOD 40 MG TAB PO SCH (11:43)
[2016-12-08] MEDS: OSELTAMIVIR PHOSPHATE 75 MG CAP PO SCH (11:43)
[2016-12-08] MEDS: PIOGLITAZONE HCL 30 MG TAB PO SCH (11:43)
[2016-12-08] MEDS: GLIMEPIRIDE 1 MG TAB PO SCH (11:43)
--- NOTE | 2016-12-08 11:57 | HHI.PR ---
Subjective Remarks Still has cough. Feels better, no dyspnea. Stress test negative. Accuchek improved this morning. Objective Vitals Vital Signs Date Time Temp Pulse Resp B/P Pulse Ox O2 Delivery O2 Flow Rate FiO2 12/08/16 08:00 97.0 65 18 126/80 97 12/08/16 08:00 78 12/08/16 07:20 93 21 12/08/16 04:07 97.7 66 20 116/86 97 12/08/16 00:00 96.7 72 18 116/82 95 12/07/16 21:15 96 21 12/07/16 20:07 97.2 76 20 123/80 98 12/07/16 16:00 96.9 80 20 116/73 95 12/07/16 12:00 96.5 65 20 135/86 94 I/O 12/07/16 12/07/16 12/07/16 12/08/16 12/08/16 12/08/16 07:00 15:00 23:00 07:00 15:00 23:00 Intake Total 820 ml 1000 ml Balance 820 ml 1000 ml Intake Oral 820 ml 1000 ml # Voids 3 5 1 1 # Bowel Movements 0 0 Result Diagram: 12/07/16 0420 12/08/16 1034 Objective Remarks GENERAL: Well-nourished, well-developed very pleasant CM patient. SKIN: Warm and dry. HEAD: Normocephalic. EYES: No scleral icterus. No injection or drainage. NECK: Supple, trachea midline. No JVD or lymphadenopathy. CARDIOVASCULAR: Regular rate and rhythm without murmurs, gallops, or rubs. RESPIRATORY: Breath sounds equal bilaterally. No accessory muscle use. GASTROINTESTINAL: Abdomen soft, non-tender, nondistended. EXTREMITIES: No cyanosis, or edema. NEUROLOGICAL: Awake, alert, and oriented x 3. Non-focal. A/P Assessment and Plan -Influenza. Symptoms improved. Continue Tamiflu and supportive care. Duo nebs. -Dehydration with mild and probable acute kidney injury due to dehydration. Improved, cr 1.2 today. -Transient chest pain last night in the setting of influenza. Serial EKGs and troponins are negative. Nuclear stress test negative. -Type 2 diabetes. cont home meds. -DVT prophylaxis with SCDs. Discharge Planning DC home. F/u with PCP in 1 week. Renetta Johnson MD Dec 08, 2016 11:57
[2016-12-08 12:00] VITALS: BP 139/88; PULSE 83; RESP 18; TEMP 97.6; O2SAT 95
[2016-12-08] MEDS ORDERED: OSEL75 PO (12:38)
== END 2016-12-08 13:28 | disposition home or self-care (01) ==
LOC: PHEFT 13:19 → PHEDA 17:21 → PH3B 18:52
PROVIDERS: ADMIT Family Medicine; ATTEND Family Medicine
DX: J10.1 Influenza due to other identified influenza virus with other respiratory manifestations (principal); I10 Essential (primary) hypertension; E11.9 Type 2 diabetes mellitus without complications; N17.9 Acute kidney failure, unspecified; E86.0 Dehydration; R94.31 Abnormal electrocardiogram [ECG] [EKG]; E78.00 Pure hypercholesterolemia, unspecified; Z79.84 Long term (current) use of oral hypoglycemic drugs
CPT/HCPCS: 71020; 71275; 78452; 80048; 80053; 81001; 82550; 82948; 83605; 83690; 84484; 85025; 85610; 85730; 87040; 87804; 93005; 93017; 94640; 94664; 96361; 96374; 96375; 99285; A9502; G0378; J2405; J2785; J2930; J7030; Q9967